=== PATIENT | male | born 1970 | race Caucasian/White ===

== ENCOUNTER 2025-01-29 18:45 | Emergency (ER) | payer OTHER ==
[~2025-01-29] VITALS: Ht 180.3 cm; Wt 127.0 kg
[2025-01-29] MEDS ORDERED: OMEP20ER PO (21:18)
[2025-01-29] MEDS ORDERED: METH40 PO (21:18)
== END 2025-01-29 22:16 | disposition home or self-care (01) ==
LOC: ER 18:45
DX: S51.811A Laceration without foreign body of right forearm, initial encounter (principal); X58.XXXA Exposure to other specified factors, initial encounter
CPT/HCPCS: 12034; 73090; 99283-25